=== PATIENT | female | born 1950 | race Caucasian/White ===

== ENCOUNTER → 2017-05-07 | Outpatient (CLI) | payer MEDICAID ==
[~2017-05-07] MED LIST: ASPI-770 PO; CALC-112 PO; CALC300T4 PO; FOSAMAX PO; HYDR-3240 PO; LETR2.5T PO; LEVO125T5 PO; TAMO10TA PO; VITA1TAB19 INJ
== END | disposition home or self-care (01) ==
LOC: CFH 07:04
PROVIDERS: ATTEND Radiology Radiation Oncology
DX: Z12.31 Encounter for screening mammogram for malignant neoplasm of breast (principal); Z85.3 Personal history of malignant neoplasm of breast; Z92.3 Personal history of irradiation; Z90.11 Acquired absence of right breast and nipple
CPT/HCPCS: G0202

== ENCOUNTER → 2017-05-29 | Outpatient (CLI) | payer MEDICAID | END | disposition home or self-care (01) | LOC: ROC 08:09 | PROVIDERS: ATTEND Radiology Radiation Oncology | DX: C50.911 Malignant neoplasm of unspecified site of right female breast (principal); Z79.82 Long term (current) use of aspirin | CPT/HCPCS: 99212; G0463 ==

== ENCOUNTER → 2018-03-16 | Outpatient (CLI) | payer MEDICARE ==
[~2018-03-16] MED LIST changes: -ASPI-770 PO; +ASPI81TA59 PO
[2018-03-16 12:55] LABS: BASOPHILS # (AUTO) 0.08 x10^3/uL (0-0.1); BASOPHILS % (AUTO) 1 % (0-1); EOSINOPHILS # (AUTO) 0.25 x10^3/uL (0-0.4); EOSINOPHILS % (AUTO) 2 % (1-7); LYMPHOCYTES # (AUTO) 2.75 x10^3/uL (1-3.4); LYMPHOCYTES % (AUTO) 25 % (22-44); MD NO; MEAN CORPUSCULAR HEMOGLOBIN 29.7 pg (27.0-34.8); MEAN CORPUSCULAR HGB CONC 33.8 g/dL (32.4-35.8); MEAN CORPUSCULAR VOLUME 87.8 fL (80-100); MEAN PLATELET VOLUME 8.2 fL (7.4-10.4); MONOCYTES # (AUTO) 0.58 x10^3/uL (0.2-0.8); MONOCYTES % (AUTO) 5 % (2-9); NEUTROPHILS # (AUTO) 7.33 x10^3/uL (1.8-6.8); NEUTROPHILS % (AUTO) 67 % (42-75); PLATELET COUNT 282 x10^3/uL (130-400); RED BLOOD COUNT 5.53 x10^6/uL (3.82-5.3); RED CELL DISTRIBUTION WIDTH 14.1 % (9.6-15.2)
== END | disposition home or self-care (01) ==
LOC: CFH 10:34
PROVIDERS: ATTEND Family Medicine
DX: R53.83 Other fatigue (principal)
CPT/HCPCS: 36415; 85025

== ENCOUNTER → 2018-05-13 | Outpatient (CLI) | payer MEDICARE | END | disposition home or self-care (01) | LOC: CFH 12:03 | PROVIDERS: ATTEND Internal Medicine Hematology & Oncology | DX: Z12.31 Encounter for screening mammogram for malignant neoplasm of breast (principal) | CPT/HCPCS: 77067 ==

== ENCOUNTER 2018-11-15 10:54 | Outpatient (CLI) | payer MEDICARE | END 2018-11-15 23:59 | disposition home or self-care (01) | LOC: CFH 10:54 | PROVIDERS: ATTEND Internal Medicine Hematology & Oncology | DX: M81.0 Age-related osteoporosis without current pathological fracture (principal); E21.3 Hyperparathyroidism, unspecified; E21.0 Primary hyperparathyroidism; R30.0 Dysuria; Z85.3 Personal history of malignant neoplasm of breast | CPT/HCPCS: 77080 ==

== ENCOUNTER → 2020-05-17 | Outpatient (CLI) | payer MEDICARE ==
[~2020-05-17] MED LIST changes: -LETR2.5T PO; +LETR2.5T3 PO; -TAMO10TA PO; +TAMO10TA6 PO
== END | disposition home or self-care (01) ==
LOC: CFH 10:20
PROVIDERS: ATTEND Internal Medicine Hematology & Oncology
DX: Z12.31 Encounter for screening mammogram for malignant neoplasm of breast (principal); C50.911 Malignant neoplasm of unspecified site of right female breast; C50.919 Malignant neoplasm of unspecified site of unspecified female breast; E21.3 Hyperparathyroidism, unspecified; E21.0 Primary hyperparathyroidism; R30.0 Dysuria
CPT/HCPCS: 77063; 77067

== ENCOUNTER 2021-01-08 09:36 | Outpatient (CLI) | payer MEDICARE ==
[~2021-01-08 09:36] MED LIST changes: +HYDR-2214 PO; -HYDR-3240 PO
== END 2021-01-08 23:59 | disposition home or self-care (01) ==
LOC: CFH 09:36
PROVIDERS: ATTEND Internal Medicine Hematology & Oncology
DX: C50.911 Malignant neoplasm of unspecified site of right female breast (principal); E21.3 Hyperparathyroidism, unspecified; M85.89 Other specified disorders of bone density and structure, multiple sites; E21.0 Primary hyperparathyroidism; R30.0 Dysuria; M81.0 Age-related osteoporosis without current pathological fracture
CPT/HCPCS: 77080

== ENCOUNTER 2021-05-20 10:16 | Outpatient (CLI) | payer MEDICARE | END 2021-05-20 23:59 | disposition home or self-care (01) | LOC: CFH 10:16 | PROVIDERS: ATTEND Internal Medicine Hematology & Oncology | DX: Z12.31 Encounter for screening mammogram for malignant neoplasm of breast (principal); N64.89 Other specified disorders of breast | CPT/HCPCS: 77063; 77067 ==